=== PATIENT | female | born 1985 | race Caucasian/White ===

== ENCOUNTER 2017-07-06 14:16 | Observation (INO) | payer OTHER ==
[2017-07-06] MEDS ORDERED: Ondansetron HCl/PF 4 MG/2 ML Vial ONE (15:08)
--- NOTE | 2017-07-06 15:12 | CT ---
NONCONTRAST HEAD CT: Date: 07/06/17 HISTORY: Sudden headache. Symptoms x2 days. Pain is intermittent. COMPARISON: None. TECHNIQUE: A noncontrast head CT is performed from the skull base to the skull vertex. FINDINGS: No parenchymal hemorrhage or extra-axial hematoma. No midline shift. Basilar cisterns are patent. Bra in volume is age-appropriate. Cortical rubin-white matter differentiation is preserved. Ventricles and sulci are patent and symmetric. Adequate aeration of the mastoid air cells. There is minimal opacifi cation of the left and right ethmoid air cells. Calvarium is intact. IMPRESSION: No acute intracranial process. POS: [facility]
[2017-07-06 15:34] LABS: #Eosinphils 0.1 thou/uL (0.0-0.7); #Monocytes 0.4 thou/uL (0.11-0.59); #Neutrophils 2.3 thou/uL (1.40-6.50); %Eosinophils 2.2 % (0.0-10.0); %Lymphocytes 41.3 % (21.0-51.0); %Monocytes 8.1 % (0.0-10.0); Hematocrit 35.4 % (36.0-47.0); Mean Platelet Volume 5.9 fL (7.4-10.4); Red Blood Cell (RBC) Count 3.94 mill/uL (4.20-5.40); White Blood Cell (WBC) Count 4.9 thou/uL (4.8-10.8)
[2017-07-06 15:44] LABS: Anion Gap 14 mmol/L (10-20); BUN (Urea Nitrogen) 9 mg/dL (7.0-18.7); Calc. Creatinine Clearance 0 mL/min (70-130); Calcium 9.2 mg/dL (7.8-10.44); Carbon Dioxide 25 mmol/L (22-29); Chloride 105 mmol/L (98-107); Estimated GFR-MDRD Greater than 90
[2017-07-06] MEDS ORDERED: Ketorolac Tromethamine 30 MG/ML VIAL ONE (15:58)
[2017-07-06] MEDS ORDERED: Cephalexin 500 MG CAP ONE (15:59)
[2017-07-06] MEDS ORDERED: Morphine 4 MG/ML Carpuject ONE (16:42)
[2017-07-06 17:07] LABS: CSF, Glucose 54 mg/dl (40-70)
[2017-07-06 18:02] LABS: Number Cells Counted-Fluids 100
[2017-07-06] MEDS ORDERED: Ondansetron HCl/PF 4 MG/2 ML Vial IVP PRN ×2 (19:43→20:17)
[2017-07-06] MEDS ORDERED: Ondansetron ODT 4 MG TAB SL PRN (19:43)
[2017-07-06] MEDS ORDERED: HYDROcodone/Acetaminophen 5/325 mg Tablet PO PRN ×2 (19:43)
[2017-07-06 19:55] VITALS: BMI 25.2
[2017-07-06] MEDS ORDERED: Ondansetron ODT 4 MG TAB PO PRN (20:17)
[2017-07-06] MEDS ORDERED: Acetaminophen 500 MG TAB PO PRN (20:17)
[2017-07-06] MEDS ORDERED: HYDROcodone/Acetaminophen 10/325 mg Tablet PO PRN (20:17)
[2017-07-06] MEDS ORDERED: Morphine 4 MG/ML VIAL SLOW IVP PRN (20:20)
[2017-07-06] MEDS ORDERED: ALPRAZolam 0.25 MG TAB PO PRN (20:24)
[2017-07-06] MEDS: Sodium Chloride 0.9% 1,000 ML IV SCH (20:41)
[2017-07-06] MEDS: Famotidine 20 MG TAB PO SCH (20:41)
[2017-07-06] MEDS: HYDROcodone/Acetaminophen 10/325 mg Tablet PO PRN (20:43)
[2017-07-06] MEDS ORDERED: Gabapentin 300 MG CAP PO SCH (21:00)
[2017-07-06] MEDS ORDERED: Cephalexin 250 MG CAP PO SCH (21:00)
--- NOTE | 2017-07-06 23:47 | HP ---
DATE OF ADMISSION/OBSERVATION: 07/06/2017 PRIMARY CARE PHYSICIAN: Marisabel Dumont MD CHIEF COMPLAINT: Headache. HISTORY OF PRESENT ILLNESS: Ms. Kaba is a pleasant 31-year-old white female with a history of chronic low back pain, status post recent lumbar surgery, anxiety, who presents to [facility] Emergency Department tonight complaining of a headache. She has had on and off headache for the last 48 hours. Last night/early this morning at around 0030 hours, she was woken up by 10/10 bifrontal headache. She describes as a constant sensation. It is not throbbing in nature. She describes it as a sharp, shooting pain. She states it is across the front of her head and makes the back of her neck tense up and describes as the worse headache she has ever had. She said she did have fever yesterday evening/early this morning to 101 point something but has not had fever since then. She describes nausea when the headache is at its worse. She has vomited a couple of times when the headache started this morning and early this afternoon. She has had no diarrhea or constipation, no sick contacts. Recently, she was diagnosed with a "sinus infection" and put on Augmentin. She is one day shy of completing that therapy. She denies any photophobia or phonophobia. Says the headache is worse with movement and when she coughs or throws up. She does not know any known alleviating factors other than just trying to relax. She went to the outside ER. Laboratory work there was negative. Because of the history of fever and headache, she did get a lumbar puncture. Tube 1 showed 9 white blood cells and 54 red cells. Differential showed 91% lymphocytes. She had normal glucose and protein and tube 4 CSF showed 6 white blood cells with 1 red blood cell. She was sent here for pain control. PAST MEDICAL HISTORY: 1. Anxiety. 2. Chronic low back pain. Her chronic pain is managed by Dr. Narvaez. PAST SURGICAL HISTORY: Includes; 1. Appendectomy remotely. 2. Tonsillectomy remotely. 3. L5-S1 hardware fusion and anterior diskectomy. Dr. Hardin, the vascular surgeon, was involved as well as Dr. David, I believe, who did the fusion. She had this done at [facility]. The pain has had good days and bad days, went up and down. Currently, it is "okay." She was actually able to be off pain medicines recently but paid for it later that day when her pain spiked up. HOME MEDICATIONS: 1. Norflex 100 mg p.o. b.i.d. 2. [place] 10/325 one tablet as needed. 3. Zoloft 100 mg daily. 4. Gabapentin 300 mg at bedtime. She did try [place] 10/325 two tablets when the headache started. It did not really seem to touch it. ALLERGIES: NKDA. FAMILY HISTORY: Negative for clotting or bleeding disorder, no immune dysfunction. SOCIAL HISTORY: Negative for habits x3. She is . 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 REVIEW OF SYSTEMS: A 10-point review of systems was performed, negative for all other systems except as per HPI. Of note, in the emergency department earlier, she did have 30 mg of Toradol, which she said did not help at all. PHYSICAL EXAMINATION: VITAL SIGNS: She is currently afebrile, temperature 98.4, pulse 62, blood pressure 103/61, respiratory rate 12, satting 97% on room air. GENERAL: She is awake. She is alert. She is oriented x3. She is a well- developed, well-nourished white female appears to be in no acute distress. She is fairly showing her neck hurts to move around, but when she puts her hand behind her head, she can easily flex her chin to her chest. She is sitting in bed with her head propped up on a pillow and her legs bent to 90 degrees of the hips and her feet tucked up under her bottom. HEENT: Normocephalic, atraumatic. Pupils are equal, round, reactive to light bilaterally, mucous membranes are moist without visible lesions or thrush. NECK: Supple. She has no lymphadenopathy, no JVD, no thyromegaly. She has a good range of motion until you specifically ask her about it and she tightens up. LUNGS: Clear. She has no wheezes, no rales, no rhonchi with good air movement. Symmetrical chest excursion. There is no prolonged expiratory phase. CARDIOVASCULAR: She has normal S1 and S2. No S3 or S4. No audible murmurs. ABDOMEN: Scaphoid, is nontender, nondistended, no masses, no organomegaly with normoactive bowel sounds present in all 4 quadrants. There is no rebound, rigidity, or guarding. Prior surgical wound is well healed. EXTREMITIES: No cyanosis, no clubbing, no edema. She has 2+ peripheral pulses in dorsalis pedis and posterior tibial. NEUROLOGIC: Cranial nerves II through XII are grossly intact. She has no focal neurologic deficits. Normal speech and 5/5 strength. SKIN: Warm, moist, and well perfused. She has no rash or lesions. Her prior posterior surgical scar is well healed. MUSCULOSKELETAL: Normal to inspection. She has no inflamed or arthritic joints. No palpable joint effusions. LABORATORY DATA: BMP and CBC are both completely within normal limits. Hemoglobin is 12.0 and hematocrit 35.4. She is currently on her menstrual cycle. Platelets are normal at 307. CSF tube 4 had 6 white blood cells, 1 red blood cell, no differential. Tube 2, glucose was 54 and total protein of 27 and tube 1, white blood cell count of 9 with red blood cell count of 54, 91% lymphocytes. Urinalysis is negative. Urine test is negative. CT scan of the head showed no acute intracranial disease. Her sinuses and mastoid air cells were clear. She has minimal thickening of the ethmoid and maxillary sinuses. ASSESSMENT AND PLAN: 1. Intractable headache: I do not believe this represents viral meningitis. She has no signs of meningismus. Her spinal fluid, white blood cell count on tube 4 was only 6. Cultures have been sent. We will not place her on respiratory precautions I do not believe this is meningococcus. I do not plan on starting her on IV antibiotics. We will observe her overnight and try to get her headache under control. At this time, she has had 2 [place] earlier, which did not seem to help. Toradol helped zero. We will continue with [place] and try to switch over to a different muscle relaxer from her Norflex. 2. Recent lumbar surgery: Her pain is average right about now. She has not had an increase in pain and certainly has not had a resolution of pain with subsequent secondary increase. If she is still having back pain or increased back pain by tomorrow, may need to get an MRI at that point. The only downfall to this is the scan has almost zero likelihood to be "normal" given she just had surgery about 2 months ago. 3. Anxiety: We will continue her Zoloft. We will have some low-dose Ativan as needed for flares. 4. Chronic low back pain: She is currently on [place] 10/325 as needed, gabapentin, Norflex. We will make changes as above. MTDD
[2017-07-07] MEDS: Sodium Chloride 0.9% 1,000 ML IV SCH ×2 (04:16→17:44)
[2017-07-07 04:46] LABS: Anion Gap 10 mmol/L (10-20); BUN (Urea Nitrogen) 8 mg/dL (7.0-18.7); Calc. Creatinine Clearance 145 mL/min (70-130); Calcium 8.2 mg/dL (7.8-10.44); Carbon Dioxide 24 mmol/L (22-29); Chloride 111 mmol/L (98-107); Estimated GFR-MDRD Greater than 90
[2017-07-07 05:10] LABS: Band 1 % (5-11); Hematocrit 31.4 % (36.0-47.0); Mean Platelet Volume 6.2 fL (7.4-10.4); Neutrophil 37 % (42-75); Reactive Lymphocytes 2 % (0-10); Red Blood Cell (RBC) Count 3.31 mill/uL (4.20-5.40); White Blood Cell (WBC) Count 3.4 thou/uL (4.8-10.8)
[2017-07-07] MEDS: HYDROcodone/Acetaminophen 10/325 mg Tablet PO PRN ×2 (06:14→15:08)
[2017-07-07] MEDS: Famotidine 20 MG TAB PO SCH (09:35)
--- NOTE | 2017-07-07 15:29 | PDOC.PN ---
- Subjective Encounter Start Date: 07/07/17 Encounter Start Time: 15:27 Subjective: still with headcahe but wants to go home. -: no vision changes/muscle weakness/Paraesthesia. -: denies any similar episodes in past - Objective Resuscitation Status: Resuscitation Status FULL:Full Resuscitation MAR Reviewed: Yes Vital Signs & Weight: Vital Signs (12 hours) Temp Pulse Resp BP Pulse Ox 07/07/17 11:02 98.4 F 65 20 109/56 L 99 07/07/17 08:00 98.2 F 65 16 07/07/17 07:19 98.2 F 65 16 100/58 L 92 L 07/07/17 04:13 98.1 F 62 16 98/57 L 94 L Weight Weight 147 lb 6.4 oz I&O: 07/06/17 07/07/17 07/08/17 06:59 06:59 06:59 Intake Total 1480 Balance 1480 Result Diagrams: 07/07/17 04:02 07/07/17 04:02 Additional Labs: Microbiology 07/06/17 15:55 Spinal Fluid Culture - Pending Body Fluid Culture - Preliminary Laboratory Tests 07/06/17 15:55 Fluid WBC (Manual) 9 H Fluid RBC (Manual) 54 H Fluid Lymphocytes % 91 Phys Exam - Physical Examination Constitutional: NAD HEENT: PERRLA, moist MMs, sclera anicteric, oral pharynx no lesions Neck: no nodes, no JVD, supple, full ROM Respiratory: no wheezing, no rales, no rhonchi, clear to auscultation bilateral Cardiovascular: RRR, no significant murmur, no rub, gallop Gastrointestinal: soft, non-tender, no distention, positive bowel sounds Musculoskeletal: no edema, pulses present Neurological: non-focal, normal sensation, moves all 4 limbs Psychiatric: normal affect, A&O x 3 Skin: no rash Dx/Plan (1) Headache Code(s): R51 - HEADACHE Status: Acute (2) Febrile illness Code(s): R50.9 - FEVER, UNSPECIFIED Status: Acute Comment: finished OP Po Keflex - Plan out of bed/ambulate, DVT proph w/SCDs likley migraine.much improved. -: no h/o neurological deficits.anneley HaNDL -: [facility].will send CSF HSV PCR -: neurology recs requested. no indication for ABX/AntiVirals for now. -: may DC later today if Ok w neurology * . Review of Systems - Review of Systems Constitutional: Other. negative: Fever, Chills, Sweats, Weakness, Malaise ENT: negative: Ear Pain, Ear Discharge, Nose Pain, Nose Discharge, Nose Congestion, Mouth Pain, Mouth Swelling, Throat Pain, Throat Swelling, Other Respiratory: negative: Cough, Dry, Shortness of Breath, Hemoptysis, SOB with Excertion, Pleuritic Pain, Sputum, Wheezing Cardiovascular: negative: Chest Pain, Palpitations, Orthopnea, Paroxysmal Noc. Dyspnea, Edema, Light Headedness, Other Gastrointestinal: negative: Nausea, Vomiting, Abdominal Pain, Diarrhea, Constipation, Melena, Hematochezia, Other Genitourinary: negative: Dysuria, Frequency, Incontinence, Hematuria, Retention , Other Musculoskeletal: negative: Neck Pain, Shoulder Pain, Arm Pain, Back Pain, Hand Pain, Leg Pain, Foot Pain, Other Neurological: negative: Weakness, Numbness, Incoordination, Change in Speech, Confusion, Seizures, Other - Medications/Allergies Allergies/Adverse Reactions: Allergies Allergy/AdvReac Type Severity Reaction Status Date / Time No Known Allergies Allergy Verified 07/06/17 20:11 Medications: Current Medications Acetaminophen (Tylenol) 1,000 mg PO Q6H PRN PRN Reason: Headache/Fever or Pain Hydrocodone Bitart/Acetaminophen (Premium 10/325) 2 tab PO Q4H PRN PRN Reason: Severe Pain (7-10) Last Admin: 07/07/17 15:08 Dose: 2 tab Hydrocodone Bitart/Acetaminophen (Premium 10/325) 1 tab PO Q4H PRN PRN Reason: Moderate Pain (4-6) Last Admin: 07/07/17 10:19 Dose: 1 tab Alprazolam (Xanax) 0.25 mg PO TIDPRN PRN PRN Reason: Anxiety Famotidine (Pepcid) 20 mg PO BID [facility] Last Admin: 07/07/17 09:35 Dose: 20 mg Gabapentin (Neurontin) 300 mg PO HS [facility] Last Admin: 07/06/17 20:42 Dose: 300 mg Sodium Chloride (Normal Saline 0.9%) 1,000 mls @ 100 mls/hr IV .Q10H [facility] Last Admin: 07/07/17 04:16 Dose: 1,000 mls Morphine Sulfate (Morphine) 4 mg SLOW IVP Q4H PRN PRN Reason: Breakthrough Pain Ondansetron HCl (Zofran Odt) 4 mg PO Q6H PRN PRN Reason: Nausea/Vomiting Ondansetron HCl (Zofran) 4 mg IVP Q6H PRN PRN Reason: Nausea/Vomiting Orphenadrine Citrate (Norflex) 100 mg PO BID [facility] Sertraline HCl (Zoloft) 100 mg PO DAILY [facility] Last Admin: 07/07/17 09:35 Dose: 100 mg
[2017-07-07 15:41] VITALS: BP 102/61; TEMP 98.5
[2017-07-07] MEDS ORDERED: SUMAtriptan Succinate 50 MG TAB PO SCH (17:45)
[2017-07-07] MEDS ORDERED: Naproxen 500 MG TAB PO SCH (17:45)
--- NOTE | 2017-07-08 01:45 | CON ---
DATE OF CONSULTATION: 07/07/2017 REFERRING PROVIDER: Shiela Newsome M.D. REASON FOR CONSULTATION: Intractable headache. HISTORY OF PRESENT ILLNESS: Ms. Kaba is a pleasant 31-year-old female, who is being co nsulted for evaluation of severe intractable headache. The patient reports that she had a recent lum bar spine surgery done. She states that a day before yesterday, she started developing severe headac he that was located in the bifrontal region as well as into the back of the head and neck. This pain was sharp and stabbing in quality. It was the worst headache of her life she felt. The neck stiffn ess and turning her head up and down would worsen her pain. She also noted that any walking would te nd to exacerbate her pain. She also noted light sensitivity as well as blurry vision with these head aches. She did not have any nausea or vomiting. There was no numbness, tingling, or weakness involv ed with this episode. She did not complain of any difficulty with balance, chest pain, palpitation, or difficulty with bowel or bladder function. She had a CT head without contrast done on arrival her e, which showed no acute intracranial abnormality. She had a lumbar puncture done, which showed CSF WBC of 9 and RBC of 54 with 91% lymphocytes, 54 glucose, and 27 protein. Gram stain was negative and there was no growth on the culture. The patient reports that her headaches have been somewhat sofie r; however, they are not completely resolved. PAST MEDICAL HISTORY: Significant for chronic low back pain, anxiety disorder. PAST SURGICAL HISTORY: Significant for appendectomy, tonsillectomy, and L5-S1 fusion and anterior di skectomy. CURRENT MEDICATIONS: Please review MAR. ALLERGIES: No known drug allergies. FAMILY HISTORY: Noncontributory. SOCIAL HISTORY: She denies smoking, alcohol use, or illicit drug use. 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 REVIEW OF SYSTEMS: As mentioned in the HPI, otherwise negative. PHYSICAL EXAMINATION: VITAL SIGNS: Blood pressure of 102/61, pulse of 73, temperature of 98.5, respirations of 16, O2 sats of 96% on room air. GENERAL: Well-developed and well-nourished female, in no apparent distress. RESPIRATORY: Clear to auscultation bilaterally. CARDIOVASCULAR: Regular rate and rhythm. NEUROLOGICAL: Mental status: The patient is awake, alert, and oriented x3. Speech and language: F luent speech. Cranial nerves: Pupils are 3 mm and reactive. Visual le are intact. Extraocular muscles are intact. No nystagmus is noted. Face is symmetric. Tongue and uvula are midline. Td r exam showed normal tone and bulk with a 5/5 strength in both upper and lower extremities. Sensory: Sensation is intact and symmetric. Deep tendon reflexes are 2+ reflexes in both upper and lower ex tremities. Babinski: Plantar responses flexion bilaterally. Coordination is intact to finger-nose- finger and finger tapping bilaterally. Kernig's sign is weakly positive. Brudzinski is negative. LABORATORY DATA: Reviewed, which included CBC, BMP, CSF studies, which is significant for WBC of 3.4 , hemoglobin 10.4, hematocrit 31.4. CSF WBC of 9 and RBC of 54, otherwise unremarkable. IMAGING STUDIES: CT head without contrast was reviewed, which showed no acute intracranial abnormali ty. IMPRESSION: 1. Viral meningitis. 2. Intractable headache, due to viral meningitis. ASSESSMENT AND PLAN: Ms. Kaba is a pleasant 31-year-old female, who presented with a 2 -day history of severe intractable headache with neck stiffness and nuchal rigidity. Her lumbar punc ture did show elevated WBC with normal glucose and protein with a lymphocytic predominance. This is likely suggestive of viral meningitis. I have discussed with the patient the treatment for viral men ingitis is supportive care. This includes hydration as well as rest. She states that she wants to h ave this done at home, which she can do well at home. I am okay for the patient to be discharged to home. No further neurological workup needed from my standpoint.
--- NOTE | 2017-07-09 11:29 | DIS ---
DATE OF ADMISSION: 07/06/2017 DATE OF DISCHARGE: 07/07/2017 CONDITION AT THE TIME OF DISCHARGE: Stable and improved. DISCHARGE DIAGNOSES: 1. Viral meningitis. 2. Intractable headache secondary to #1. 3. History of anxiety. 4. Chronic low back pain. PRIMARY CARE PHYSICIAN: Marisabel Dumont M.D. DISCHARGE MEDICATIONS: Remain the same as admission medications. No changes were made as follows, N orflex 100 mg p.o. b.i.d., hydrocodone as needed, Zoloft 100 mg daily, gabapentin 300 mg at bedtime. PROCEDURES DONE IN THE HOSPITAL: Include, 1. Lumbar puncture. 2. CT scan of the brain which did not show any acute intracranial process. CONSULTATIONS: Neurology, Dr. Melinda Gil. HISTORY OF PRESENT ILLNESS: Ms. Kaba is a 31-year-old female with history of chronic low back pa in who recently underwent lumbar surgery for same, presented to the emergency room with complaints of severe intractable headache of 48 hours duration. She also reported prodrome of low grade fever as well as ongoing "sinus infection" for which she is taking Augmentin. Upon presentation because of th e fever and headache, she underwent a lumbar puncture. Her tube one showed 9 white blood cells and 5 4 red cells with differential of 91% lymphocytes, and normal glucose and protein. Tube four showed 6 WBCs with 1 RBC. She was admitted for further workup. A urinalysis was done which was negative. U rine test was negative and her CBC and CMP were within normal limits. CT scan of the head was unremarkable. Please see admission history and physical for further details. HOSPITAL COURSE: The patient remained rather hemodynamically stable throughout her hospitalization. Her headache was managed with various pain medication and was somewhat better. Because of the lymph ocytic predominant CSF picture Neurology was consulted with the possibility of sympathetic meningitis . Dr. Gil saw the patient and agreed that this most likely is viral meningitis. The treatment is m ainly supportive and after discussion with the patient, she wanted to go home and rest. This was dis cussed with Neurology, who was okay with her discharge as well. On the day of discharge, she was seen and examined and is feeling much better. Hemodynamically stabl e. Please see hospitalist progress note from the date of discharge for further detail including face -to-face interaction. She is instructed to follow up with her primary care physician in 1 to 2 weeks.
[2017-07-10 22:09] LABS: HSV 1 - DNA Negative (Negative)
== END 2017-07-07 18:29 | disposition home or self-care (01) ==
LOC: SCSER 14:16 → 2SW 18:00
PROVIDERS: ADMIT Internal Medicine Infectious Disease; ATTEND Internal Medicine Infectious Disease
DX: A87.9 Viral meningitis, unspecified (principal); F41.9 Anxiety disorder, unspecified; M54.5 Low back pain; G89.29 Other chronic pain; Z79.899 Other long term (current) drug therapy; Z98.1 Arthrodesis status; Z90.89 Acquired absence of other organs; Z98.890 Other specified postprocedural states
CPT/HCPCS: 36415; 62270; 70450; 80048; 82945; 84157; 85025; 85060; 87070; 87205; 87529; 89051; 94760; 96361; 96374; 96375; G0378; J1885; J2270; J2405

== ENCOUNTER 2017-10-04 11:06 | Outpatient (CLI) | payer OTHER | END 2017-10-04 11:07 | disposition home or self-care (01) | LOC: BICULT 11:06 | PROVIDERS: ATTEND Internal Medicine | DX: N63.10 Unspecified lump in the right breast, unspecified quadrant (principal) ==

== ENCOUNTER 2018-06-13 09:01 | Outpatient (CLI) | payer OTHER ==
--- NOTE | 2018-06-13 11:40 | MRI ---
BRAIN MRI WITHOUT CONTRAST: Date: 06-13-18 Comparison: None. History: Persistent headaches. Headache for two months. Technique: Multiplanar, multisequence MR imaging of the brain is provided without contrast. FINDINGS: The axial diffusion weighted imaging demonstrates no evidence for acute infarction. The axial gradient echo imaging demonstrates no evidence for intracranial hemorrhage. Imaged paranasal sinuses/mastoid air cells appear well aerated. Arterial flow voids at axial level of the skull base appear grossly unremarkable on the T2 weighted i maging. Regional bone marrow signal intensity is within normal limits. No midline shift, mass effect, or vent ricular enlargement is seen. IMPRESSION: No acute findings. POS: [facility]
== END 2018-06-13 09:02 | disposition home or self-care (01) ==
LOC: SCSMRI 09:01
PROVIDERS: ATTEND Internal Medicine
DX: R51 Headache (principal)
CPT/HCPCS: 70551

== ENCOUNTER 2018-10-21 10:33 | Outpatient (CLI) | payer OTHER ==
--- NOTE | 2018-10-21 13:01 | CT ---
CT ABDOMEN AND PELVIS WITH CONTRAST: HISTORY: Abnormal weight loss. Left lower quadrant pain. TECHNIQUE: Contrast enhanced CT images of the abdomen and pelvis are obtained after the administration of IV and oral contrast. FINDINGS: The lung bases are unremarkable. No evidence of free intraperitoneal air is seen. The patient has h ad previous lumbosacral fusion. The liver, spleen, gallbladder, pancreas, adrenal glands, and kidney s are unremarkable. No evidence of periaortic lymphadenopathy is seen. There are areas of heterogen eity within the uterine cavity, possible representing uterine debris, within the uterine canal. The right ovary is unremarkable. There is a 2.5 cm area of hypodensity within the left ovary, possibly r epresenting a left ovarian cyst. IMPRESSION: There appears to be some nonenhancing material within the uterine canal. Correlate with a gynecologi c consultation. POS: [facility]
== END 2018-10-21 10:34 | disposition home or self-care (01) ==
LOC: SCSCT 10:33
PROVIDERS: ATTEND Internal Medicine
DX: R10.32 Left lower quadrant pain (principal); R63.4 Abnormal weight loss; R11.0 Nausea; R93.89 Abnormal findings on diagnostic imaging of other specified body structures
CPT/HCPCS: 74177

== ENCOUNTER 2025-04-27 14:16 | Outpatient (CLI) | payer SELFPAY | END 2025-04-27 14:17 | disposition home or self-care (01) | LOC: SCSMRI 14:16 | PROVIDERS: ATTEND Internal Medicine | DX: N83.8 Other noninflammatory disorders of ovary, fallopian tube and broad ligament (principal); R93.89 Abnormal findings on diagnostic imaging of other specified body structures | CPT/HCPCS: 72197; A9577 ==